=== PATIENT | female | born 1980 | race Caucasian/White ===

== ENCOUNTER 2023-11-14 13:25 | Emergency (ER) | payer OTHER, SELFPAY ==
[2023-11-14 13:34] VITALS: BP 164/108; PULSE 88; O2SAT 99; BMI 28.3
[2023-11-14 13:43] VITALS: TEMP 36.9
--- NOTE | 2023-11-14 13:43 | ECG_ITS ---
[facility] Test Date: 2023-11-14 Pat Name: GABBY FREEDMAN Department: Room: - Gender: Female [employer] Maint Eng: : 1980 Requested By: Order Number: [id number] Reading MD: ALICE MONTERO Measurements Intervals [place] Rate: 80 P: 58 WV: 136 QRS: 73 QRSD: 80 T: 54 QT: 376 QTc: 412 Interpretive Statements 1100 Sinus rhythm 1102 Sinus arrhythmia 9110 normal ECG No previous ECG available for comparison Electronically Signed On 11-14-2023 21:19:42 EDT by ALICE MONTERO
--- NOTE | 2023-11-14 13:44 | ED_ITS ---
HPI HPI - General Adult General Chief complaint: Arrhythmia/Palpitations Stated complaint: FAST HEART RATE/ HIGH BLOOD PRESSURE Time Seen by Provider: 11/14/23 13:37 Source: patient Mode of arrival: walk-in Limitations: no limitations History of Present Illness HPI narrative: Patient is a 43-year-old female who presents to the emergency department for the evaluation of chest discomfort for the last 2 days. 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 Patient denies any severe chest pain, shortness of breath, recent illness. No medications taken prior to arrival. She is on control, she takes no other home medications. She denies the symptoms previously. She is resting comfortably at time of initial evaluation and denies any significant discomfort, nausea at this time. Related Data Allergies Allergy/AdvReac Type Severity Reaction Status Date / Time No Known Drug Allergies Allergy Verified 11/14/23 13:34 Opioid HPI Opioid Management Most Recent Opioid Data: No Data to Display Review of Systems ROS Constitutional Denies: fever or chills Ears, nose, mouth, and throat Denies: throat pain or nasal congestion Cardiovascular Reports: chest pain and palpitations Respiratory Denies: shortness of breath Gastrointestinal Denies: nausea or vomiting Integumentary/Breast Denies: rash Neurological Denies: headache Hematologic/Lymphatic Denies: easy bruising or easy bleeding Exam Narrative Exam Narrative: Gen.: Awake, alert, in no distress Head: Normocephalic, atraumatic ENT: Moist mucous membranes Respiratory: No respiratory distress, lungs clear bilaterally Cardio: Regular rate and rhythm Extremities: Moves extremities equally Psych: Normal mood and affect Neuro: No focal neuro deficit Skin: Warm, dry, intact Constitutional Vital Signs, click to edit/add: Last Vital Signs Temp 98.4 F 11/14/23 13:43 Pulse 88 11/14/23 13:34 Resp 16 11/14/23 13:34 BP 164/108 H 11/14/23 13:34 Pulse Ox 99 11/14/23 13:34 O2 Del Method Room Air 11/14/23 13:34 Course Vital Signs Vital signs: Vital Signs Pulse Rate 88 11/14/23 13:34 Respiratory Rate 16 11/14/23 13:34 Blood Pressure 164/108 H 11/14/23 13:34 Pulse Oximetry 99 11/14/23 13:34 Oxygen Delivery Method Room Air 11/14/23 13:34 Temperature 98.4 F 11/14/23 13:43 Pulse Rate 88 11/14/23 13:34 Respiratory Rate 16 11/14/23 13:34 Blood Pressure 164/108 H 11/14/23 13:34 Pulse Oximetry 99 11/14/23 13:34 Oxygen Delivery Method Room Air 11/14/23 13:34 Medical Decision Making MDM Narrative Medical decision making narrative: Laboratory studies reviewed and noted including D-dimer and troponin. Chest x- ray is unremarkable. EKG with no acute changes. Patient discharged after repeat blood pressure prior to evaluation by attending physician. Blood pressure is 141/90. Patient encouraged to follow-up with her PCP and return to the ER if symptoms change or worsen SHARED APC VISIT, PHYSICIAN ATTESTATION: [id number] I performed a substantive part of the MDM during the patient?s E/M visit. I personally evaluated and examined the patient. I personally made or approved the documented management plan and acknowledge its risk of complications. Medical Records Medical records reviewed: Yes I reviewed the patient's medical records Lab Data Lab results reviewed: Yes I reviewed the patient's lab results Labs: Lab Results 11/14/23 Range/Units 14:06 WBC 8.0 (4.0-11.0) 10^3/uL RBC 4.04 L (4.20-5.40) 10^6/uL Hgb 13.0 (12.0-16.0) g/dL Hct 37.4 (36.0-48.0) % MCV 92.6 (81.0-99.0) fL MCH 32.2 (26.7-34.0) pg MCHC 34.8 (29.9-35.2) g/dL RDW 11.9 (11.0-15.0) % Plt Count 362 (150-450) 10^3/uL MPV 9.3 L (9.5-13.5) fL Neut % (Auto) 70.9 (43.0-75.0) % Lymph % (Auto) 21.3 (20.5-60.0) % [place] % (Auto) 6.7 (1.7-12.0) % Eos % (Auto) 0.4 L (0.9-7.0) % Baso % (Auto) 0.6 (0.2-2.0) % Neut # (Auto) 5.7 (1.4-6.5) 10^3/uL Lymph # (Auto) 1.7 (1.2-3.8) 10^3/uL [place] # (Auto) 0.5 (0.3-0.8) 10^3/uL Eos # (Auto) 0.0 (0.0-0.7) 10^3/uL Baso # (Auto) 0.1 (0.0-0.1) 10^3/uL Abs Immat Gran (auto) 0.01 (0.00-0.03) 10^3/uL Imm/Tot Granulo (auto) 0.1 (0.0-0.5) % PT 10.3 (9.0-11.6) sec INR 0.97 D-Dimer 0.26 (<=0.59) mg/L FEU Sodium 134 L (136-145) mmol/L Potassium 3.7 (3.5-5.1) mmol/L Chloride 100 (98-107) mmol/L Carbon Dioxide 27.2 (21.0-32.0) mmol/L Anion Gap 10.5 BUN 13.0 (7.0-18.0) mg/dL Creatinine 0.77 (0.55-1.02) mg/dL Est GFR ( Amer) >60 (>=60) Est GFR (Non-Af Amer) >60 (>=60) BUN/Creatinine Ratio 16.9 Glucose 95 (74-106) mg/dL Calcium 8.6 (8.5-10.1) mg/dL Total Bilirubin 0.5 (0.2-1.0) mg/dL AST 18 (15-37) U/L ALT 23 (14-59) U/L Alkaline Phosphatase 56 (46-116) U/L Troponin I High Sens <4.0 L (4.0-51.3) pg/mL NT-Pro-B Natriuret Pep 35.0 (<=450.0) pg/mL Total Protein 7.4 (6.4-8.2) g/dL Albumin 3.6 (3.4-5.0) g/dL Globulin 3.8 g/dL Albumin/Globulin Ratio 0.9 TSH 2.954 (0.358-3.740) uIU/mL Imaging Data Chest x-ray: Attestation: I have reviewed the pertinent imaging results. Radiologist's impression: ITS Impressions Chest X-Ray 11/14/23 14:43 IMPRESSION: Elevated right hemidiaphragm Clear lungs Electronically authenticated by: CICI BAIG Date: 11/14/2023 15:30 ECG Data Attestation: I personally reviewed and interpreted this ECG as follows: (Normal sinus rhythm at a rate of 80, no acute ST elevation or ectopy. Sinus arrhythmia, EKG reviewed by attending physician.) Discharge Plan Discharge Stand Alone Forms: Portal Instructions Chief Complaint: Arrhythmia/Palpitations Clinical Impression: Chest discomfort, Elevated blood pressure reading Patient Disposition: Home, Self-Care Time of Disposition Decision: 15:48 Condition: Good Print Language: Maori Instructions: Noncardiac Chest Pain (ED) Referrals: Physician,Non-Staff, MD [Primary Care Provider] - 1 week
[2023-11-14 14:24] LABS: Basophils Absolute Auto 0.1 10^3/uL (0.0-0.1); Basophils Percent Auto 0.6 % (0.2-2.0); Eosinophils Percent Auto 0.4 % (0.9-7.0); Hematocrit 37.4 % (36.0-48.0); Immature Granulocytes Abs Auto 0.01 10^3/uL (0.00-0.03); Immature Granulocytes Pct Auto 0.1 % (0.0-0.5); Lymphocytes Absolute Auto 1.7 10^3/uL (1.2-3.8); Lymphocytes Percent Auto 21.3 % (20.5-60.0); Mean Corpuscular HGB Conc 34.8 g/dL (29.9-35.2); Mean Corpuscular Hemoglobin 32.2 pg (26.7-34.0); Mean Corpuscular Volume 92.6 fL (81.0-99.0); Mean Platelet Volume 9.3 fL (9.5-13.5); Monocytes Absolute Auto 0.5 10^3/uL (0.3-0.8); Monocytes Percent Auto 6.7 % (1.7-12.0); Neutrophils Absolute Auto 5.7 10^3/uL (1.4-6.5); Neutrophils Percent Auto 70.9 % (43.0-75.0); Platelet Count 362 10^3/uL (150-450); Red Blood Count 4.04 10^6/uL (4.20-5.40); Red Cell Distribution Width 11.9 % (11.0-15.0)
[2023-11-14] MEDS: 0.9 % SODIUM CHLORIDE 1,000 ML 999 ML IV (14:33)
[2023-11-14 14:40] LABS: D Dimer 0.26 mg/L FEU (<=0.59); INR 0.97; Prothrombin Time 10.3 sec (9.0-11.6)
--- NOTE | 2023-11-14 14:43 | XR_ITS ---
The [address] [address] Patient Name: GABBY FREEDMAN MRN: [id number] date: 1980 Sex: F Assigned Patient Location: ER Current Patient Location: ER Accession/Order Number: [id number] Exam Date: 11/14/2023 14:45 Report Date: 11/14/2023 15:30 At the request of: YESSI GLEASON Procedure: XR chest 1V EXAMINATION: XR chest 1V HISTORY: Chest pain COMPARISON: No relevant comparison available. TECHNIQUE: AP portable FINDINGS: LUNGS: No significant pulmonary parenchymal abnormalities. VASCULATURE: No increased pulmonary vasculature. PLEURA: No pneumothorax, effusion, or pleural thickening. Elevated right hemidiaphragm CARDIAC: No cardiomegaly or cardiac silhouette abnormality. MEDIASTINUM: No visible mass or adenopathy. BONES: No fracture or visible bone lesion. OTHER: Negative. XR/XR chest 1V IMPRESSION: Elevated right hemidiaphragm Clear lungs Electronically authenticated by: CICI BAIG Date: 11/14/2023 15:30
[2023-11-14 14:45] LABS: Alanine Aminotransferase 23 U/L (14-59); Albumin Globulin Ratio 0.9; Albumin Level 3.6 g/dL (3.4-5.0); Alkaline Phosphatase 56 U/L (46-116); Anion Gap 10.5; Aspartate Amino Transferase 18 U/L (15-37); BUN Creatinine Ratio 16.9; Bilirubin Total 0.5 mg/dL (0.2-1.0); Calcium 8.6 mg/dL (8.5-10.1); Carbon Dioxide 27.2 mmol/L (21.0-32.0); Chloride 100 mmol/L (98-107); Estimated GFR (African America >60 (>=60); Estimated GFR (Non-African Ame >60 (>=60); Globulin 3.8 g/dL; Glucose 95 mg/dL (74-106); Potassium 3.7 mmol/L (3.5-5.1); Sodium 134 mmol/L (136-145); Total Protein 7.4 g/dL (6.4-8.2)
[2023-11-14 14:53] LABS: Thyroid Stimulating Hormone 2.954 uIU/mL (0.358-3.740); Troponin I High Sensitivity <4.0 pg/mL (4.0-51.3)
[2023-11-14 15:47] VITALS: BP 141/96; PULSE 90; O2SAT 97
== END 2023-11-14 16:00 | disposition home or self-care (01) ==
PROVIDERS: Physician Assistant; Emergency Provider Emergency Medicine
DX: R07.89 Other chest pain (principal); I10 Essential (primary) hypertension; Z79.3 Long term (current) use of hormonal contraceptives
CPT/HCPCS: 36415; 71045; 80053; 83880; 84443; 84484; 85025; 85378; 85610; 93005; 99285